=== PATIENT | male | born 1960 | race Caucasian/White ===

== ENCOUNTER 2022-10-02 18:31 | Emergency (ER) | payer OTHER, SELFPAY ==
--- NOTE | ~2022-10-02 | XR_ITS ---
EXAM: XR lumbar spine min 4V DATE: 10/02/2022 19:07 HISTORY: RIGHT SIDE BACK PAIN, REMOTE HX INJURY . COMPARISON: None available. FINDINGS: 5 nonrib-bearing lumbar-type vertebral bodies. Pedicles intact. 11 mm retrolisthesis at L5 -S1. Mild anterior wedge deformity at all lumbar levels. Multilevel disc space narrowing and marginal osteophytosis, most evident at L5-S1. No pars defect. Multilevel lower lumbar facet sclerosis and hy pertrophy with interspinous narrowing. No fracture or dislocation. IMPRESSION: Mild anterior wedge deformity at all lumbar levels. Grade 2 retrolisthesis at L5-S1. Grad e 1 anterolisthesis at L4-5. Severe degenerative disc disease at L5-S1. Multilevel facet arthropathy. Reviewed, dictated and finalized at location K. IMPRESSION: Mild anterior wedge deformity at all lumbar levels. Grade 2 retroli sthesis at L5-S1. Grade 1 anterolisthesis at L4-5. Severe degenerative disc dis ease at L5-S1. Multilevel facet arthropathy.
--- NOTE | 2022-10-02 18:35 | ED.BACK ---
HPI - Back Pain/Injury General Chief Complaint: Back Pain/Injury Stated Complaint: back injury Time Seen by Provider: 10/02/22 18:53 Source: patient and RN notes reviewed Mode of arrival: ambulatory Limitations: no limitations History of Present Illness HPI Narrative: 62 year old male presents with concern for low back pain. He reports pain started about a month ago has been worsening. Reports he recently became active again after inactivity due to hip bursitis years ago. Reports he has been training, walking daily. Reports he began having low back pain that ?locks up,? reports if he is lying in bed he cannot get up because his back is locked up. He reports he occasionally takes ibuprofen for his symptoms. Reports his right leg feels ?tired? at the end of the day. He denies loss of bowel or bladder function, perianal anesthesia, abdominal pain, fever. MD elicited complaint: back pain Related Data Allergies Allergy/AdvReac Type Severity Reaction Status Date / Time No Known Allergies Allergy Verified 10/02/22 19:11 Review of Systems Review of Systems: CONSTITUTIONAL: Denies malaise, chills, sweats, or fever. CARDIOVASCULAR: Denies chest pain, palpitations, or edema. RESPIRATORY: Denies cough or dyspnea. GASTROINTESTINAL: Denies abdominal pain, nausea, vomiting, diarrhea, loss of bowel function GENITOURINARY: Denies dysuria, hematuria, frequency, loss of bladder function. SKIN: Denies rash or itching. MUSCULOSKELETAL: Reports low back pain NEUROLOGIC: Denies numbness, weakness, or headache. Reports right leg feels ?tired? All systems reviewed & are unremarkable except as noted in HPI and below PMFSH Comments At time of signature, agree with nursing past medical, surgical, social and family history. There is no relevant family history pertinent to the presenting complaint Exam Narrative: GENERAL: Well-appearing, well-nourished, and in no acute distress. HEAD: Normocephalic, atraumatic. EYES: PERRLA and EOMI. NECK: Supple. No lymphadenopathy. CHEST: Clear to auscultation. No respiratory distress. HEART: Regular rate and rhythm. Distal pulses palpable and equal, cap refill <3 seconds ABDOMEN: Soft, nontender, nondistended, normal active bowel sounds, no palpable or pulsatile masses. No CVA tenderness MUSCULOSKELETAL: Normal range of motion and strength in all extremities; 5/5 strength with hip flexion and extension, dorsiflexion and extension, knee flexion and extension, plantar flexion and extension. Normal sensation in dermatomal distributions with sensitivity to light touch and pain. No midline back tenderness to palpation. No paraspinal tenderness. Transfers from sitting to standing. SKIN: Warm, dry, no rash. No ecchymosis, erythema, open wounds to back. NEURO: No focal deficits. Alert and oriented x3. Normal gait. PSYCH: Normal mood and affect Course Course Emergency Course: Patient is aware of diagnosis, understands and agrees to treatment plan. Anticipatory guidance given. Patient agrees to follow-up as directed and is aware of reasons to seek care at the emergency department. Portions of this record may have been created with voice recognition software Level of Care: Express Care Visit Vital Signs Vital signs: Reviewed. MDM - Back Pain/Injury MDM Narrative Medical decision making narrative: No risk factors or findings concerning for epidural abscess, diskitis, vertebral osteomyelitis, cord compression, cauda equina, vertebral fracture or bone malignancy, AAA, or pyelonephritis. Patient instructed to consider further imaging and workup through their primary care physician as an outpatient if symptoms persist. Imaging Data My impression: Images reviewed, interpreted by radiologist, agree, see report. Radiologist's impression: EXAM:? XR lumbar spine min 4V DATE: 10/02/2022 19:07 HISTORY: RIGHT SIDE BACK PAIN, REMOTE HX INJURY . COMPARISON:? None available. FINDINGS:? 5 nonrib-bearing lumbar-type ve
[2022-10-02 18:43] VITALS: BP 161/77; PULSE 81; RESP 16; TEMP 36.4; O2SAT 100
[2022-10-02 18:57] VITALS: BP 161/77; PULSE 81; RESP 16; TEMP 36.4; O2SAT 100
== END 2022-10-02 19:43 | disposition home or self-care (01) ==
PROVIDERS: Emergency Provider Nurse Practitioner
DX: M43.17 Spondylolisthesis, lumbosacral region (principal); M47.817 Spondylosis without myelopathy or radiculopathy, lumbosacral region
CPT/HCPCS: 72110; 99213; G0463

== ENCOUNTER 2023-01-30 14:52 | Outpatient (CLI) | payer OTHER, SELFPAY ==
--- NOTE | ~2023-01-30 | US_ITS ---
EXAMINATION: US venous doppler [facility] DATE: 01/30/2023 16:01 INDICATION: Left lower limb swelling. TECHNIQUE: Grayscale ultrasound images without and with compression and Doppler ultrasound images of the left lower extremity veins were obtained. COMPARISON: None. FINDINGS: The visualized portions of left common femoral vein, profunda (deep) femoral vein, femoral vein, popl iteal vein, peroneal veins, posterior tibial veins, and greater saphenous vein outflow are patent. IMPRESSION: 1. No deep venous thrombosis. Reviewed, dictated and finalized at location A.
== END 2023-01-30 14:53 | disposition home or self-care (01) ==
PROVIDERS: PCP Family Medicine Sports Medicine
DX: M79.89 Other specified soft tissue disorders (principal); Z98.1 Arthrodesis status
CPT/HCPCS: 93971

== ENCOUNTER 2023-02-03 14:29 | Emergency (ER) | payer OTHER, SELFPAY ==
--- NOTE | ~2023-02-03 | US_ITS ---
EXAMINATION: US venous doppler [facility] DATE: 02/03/2023 15:37 INDICATION: Left lower limb pain and swelling. TECHNIQUE: Grayscale ultrasound images without and with compression and Doppler ultrasound images of the left lower extremity veins were obtained. COMPARISON: Ultrasound 01/30/2023 FINDINGS: There is thrombus in left common femoral vein, profunda femoral vein, femoral vein, and peroneal and greater saphenous veins. Left popliteal vein and posterior tibial veins are patent. IMPRESSION: 1. Acute deep vein thrombosis in left lower limb. I called this result to Dr. Richey. Reviewed, dictated and finalized at location E.
[2023-02-03 14:30] VITALS: BP 157/108; PULSE 124; RESP 20; TEMP 36.8; O2SAT 100
--- NOTE | 2023-02-03 14:53 | PC.NURSE ---
Pt states that he had surgery on Saturday on his back. Pt states over the next few days he noticed swelling to his left leg. States that leg has continued to swell from his hip down to the left foot. States that he has been having pain in the leg as well. States he did have an ultrasound on Sat and was told that he did not have a blood clot. PMS is present in the foot, but pt is having weakness to the left leg. States that he was ambulating up until the surgery and now the left leg is having trouble moving.
--- NOTE | 2023-02-03 15:11 | ED.EXTPRO ---
HPI - Extremity Problem General Chief complaint: Extremity Problem,Nontraumatic Stated complaint: LLE swelling Time Seen by Provider: 02/03/23 14:39 History of Present Illness HPI Narrative: Patient is a 62-year-old male presenting with left leg swelling. Patient states that he had back surgery earlier this week. States he has been doing well in regards to recovering from the surgery but his left leg has been increasingly swollen. States that he had an ultrasound approximately 5 days ago which showed 0 blood clots. Unfortunately, over the last day his left leg has become progressively even more swollen. He called his surgeon today who advised that he come in for another ultrasound. States that his leg just feels very tight. No numbness or weakness. Denies recent injuries. Denies further complaints. States that he is scheduled for another back surgery tomorrow. Related Data Allergies Allergy/AdvReac Type Severity Reaction Status Date / Time No Known Allergies Allergy Verified 02/03/23 14:51 Review of Systems Review of Systems: All systems reviewed & are unremarkable except as noted in HPI and below Exam Narrative: GENERAL: Well-appearing, well-nourished, and in no acute distress. Pleasant and cooperative HEAD: Normocephalic, atraumatic. EYES: PERRLA and EOMI. ENT: Nares clear, no rhinorrhea or epistaxis. Mucous membranes moist. NECK: Supple. CHEST: No respiratory distress. HEART: Regular rate and rhythm ABDOMEN: abdominal binder in place EXTREMITIES: entire left leg is edematous, no erythema, no tenderness, DP pulses 2+, no sensory deficits SKIN: Warm, dry, no rash. NEURO: No focal deficits. Alert and oriented x3. PSYCH: Normal mood and affect. Course Vital Signs Vital signs: Vital Signs Temperature 98.3 F 02/03/23 14:30 Pulse Rate 124 H 02/03/23 14:30 Respiratory Rate 20 02/03/23 14:30 Blood Pressure 157/108 H 02/03/23 14:30 Pulse Oximetry 100 02/03/23 14:30 Oxygen Delivery Room Air 02/03/23 14:30 Temperature 98.3 F 02/03/23 14:30 Pulse Rate 96 02/03/23 16:24 Respiratory Rate 18 02/03/23 16:24 Blood Pressure 148/88 H 02/03/23 16:24 Pulse Oximetry 100 02/03/23 16:24 Oxygen Delivery Room Air 02/03/23 14:30 MDM - Extremity (Nontraumatic) MDM Narrative Medical decision making narrative: Patient is a 62-year-old male presenting with left leg swelling in the setting of recent surgery. Vitals are stable. Exam remarkable for the above. Ultrasound reveals an acute DVT involving the left leg. Blood work without significant abnormality. I spoke with the patient's surgeon Dr. Bansal who agrees with starting Eliquis at this time. Advises the patient call him to reschedule his surgery that is planned for tomorrow. Feel the patient is safe for outpatient management. Patient and his voiced understanding and are agreeable with plan. Strict return precautions given. Discharged in stable condition peer Differential Diagnosis Differential diagnosis: Likely cellulitis, superficial thrombophlebitis, lower extremity edema and deep vein thrombosis of lower extremity Medical Records Attestation: I reviewed the patient's medical records. Lab Data Attestation: I reviewed the patient's lab results. 02/03/23 15:49 02/03/23 15:49 Labs: Lab Results 02/03/23 Range/Units 15:49 WBC 13.6 H (4.5-10.0) K/mm3 RBC 3.97 L (4.6-6.20) M/mm3 Hgb 12.4 L (14.0-18.0) g/dL Hct 37.6 L (42.0-52.0) % MCV 94.7 (80-100) fl MCH 31.2 (26-34) pg MCHC 33.0 (32-36) g/dl RDW 12.9 (11.5-14.5) % Plt Count 156 (150-375) k/mm3 MPV 9.5 (7.4-10.4) fl Immature Gran % (Auto) 0.4 (0-0.5) % Neut % (Auto) 90.4 H (45.5-73.1) % Lymph % (Auto) 2.5 L (18.3-44.2) % Coffee % (Auto) 6.3 (2.6-8.5) % Eos % (Auto) 0.1 (0-4.4) % Baso % (Auto) 0.3 (0.2-1.2) % Lymph # (Auto) 0.34 L (0.9-3.2) K/mm3 Coffee # (Auto) 0.9 H (0.1-0.6) K/mm3
[2023-02-03] MEDS: oxyCODONE/ACETAMINOPHEN (*CRX) 5-325 MG TABLET 1 TABLET PO (15:18)
[2023-02-03 15:56] LABS: Basophils Percent Auto 0.3 % (0.2-1.2); Eosinophils Percent Auto 0.1 % (0-4.4); Hematocrit 37.6 % (42.0-52.0); Hemoglobin 12.4 g/dL (14.0-18.0); Immature Granulocyte Absolute 0.06 K/mm3 (0.00-0.031); Immature Granulocyte Percent A 0.4 % (0-0.5); Lymphocytes Absolute Auto 0.34 K/mm3 (0.9-3.2); Lymphocytes Percent Auto 2.5 % (18.3-44.2); Mean Corpuscular Hemoglobin 31.2 pg (26-34); Mean Corpuscular Volume 94.7 fl (80-100); Mean Platelet Volume 9.5 fl (7.4-10.4); Monocytes Absolute Auto 0.9 K/mm3 (0.1-0.6); Monocytes Percent Auto 6.3 % (2.6-8.5); Neutrophils Absolute Auto 12.3 K/mm3 (1.3-6.7); Neutrophils Percent Auto 90.4 % (45.5-73.1); Platelet Count Result 156 k/mm3 (150-375); Red Blood Count 3.97 M/mm3 (4.6-6.20); Red Cell Distribution Width 12.9 % (11.5-14.5); White Blood Count 13.6 K/mm3 (4.5-10.0)
[2023-02-03 16:04] LABS: Anion Gap 6 mmol/L (8-16); Blood Urea Nitrogen 13 mg/dL (9-20); Calcium 8.8 mg/dL (8.4-10.2); Carbon Dioxide 30 mmol/L (22-30); Chloride 94 mmol/L (98-107); Creatine Kinase 119 U/L (55-170); Estimated CRCL calculation 130 ml/min; Estimated Glomerular Filt Rate > 60; Glucose 118 mg/dL (65-110); Potassium 4.6 mmol/L (3.4-5.0); Sodium 130 mmol/L (137-145)
[2023-02-03 16:05] LABS: INR 1.1; Prothrombin Time 14.8 Seconds (11.1-14.7)
[2023-02-03 16:07] LABS: Partial Thromboplastin Time 90.8 SECONDS (22.3-36.8)
[2023-02-03 16:24] VITALS: BP 148/88; PULSE 96; RESP 18; O2SAT 100
== END 2023-02-03 17:10 | disposition home or self-care (01) ==
PROVIDERS: Emergency Provider Emergency Medicine; PCP Family Medicine Sports Medicine
DX: T81.72XA Complication of vein following a procedure, not elsewhere classified, initial encounter (principal); I82.452 Acute embolism and thrombosis of left peroneal vein; I82.412 Acute embolism and thrombosis of left femoral vein; I82.492 Acute embolism and thrombosis of other specified deep vein of left lower extremity; Y83.8 Other surgical procedures as the cause of abnormal reaction of the patient, or of later complication, without mention of misadventure at the time of the procedure
CPT/HCPCS: 36415; 80048; 82550; 85025; 85055; 85610; 85730; 93971; 99284; A9270